=== PATIENT | female | born 1955 | race Caucasian/White ===

== ENCOUNTER 2021-03-02 07:56 | Day surgery (SDC) | payer OTHER ==
[~2021-03-02] VITALS: Ht 172.7 cm; Wt 90.0 kg
[~2021-03-02 07:56] MED LIST: Aspir 8181 MG PO; GLUCHON PO; VITAMIN D325 MC3 PO; Vitamin B Comple1 EA PO; [UNRECOGNIZED DRUG - OTHER]
--- NOTE | 2021-03-02 08:22 | NUR ---
03/02/21 0822 Anushka Elizondo 1 TRY RIGHT HAND BLEW
== END 2021-03-02 10:05 | disposition home or self-care (01) ==
LOC: ORSCSDS 07:56
PROVIDERS: Surgery
PROC: 0DJD8ZZ Inspection of Lower Intestinal Tract, Via Natural or Artificial Opening Endoscopic (ICD-10-PCS; principal; 2021-03-02 09:15)
DX: Z12.11 Encounter for screening for malignant neoplasm of colon (principal)
CPT/HCPCS: J2704; J7120